=== PATIENT | female | born 1980 | race African-American/Black ===

== ENCOUNTER 2017-11-29 01:21 | Inpatient (IN) | payer OTHER ==
[~2017-11-29] VITALS: Ht 170.2 cm; Wt 75.7 kg
[2017-11-29] MEDS ORDERED: ZINC220C8 PO (03:21)
[2017-11-29] MEDS ORDERED: GABA300C PO (03:21)
[2017-11-29] MEDS ORDERED: [UNRECOGNIZED DRUG - CODE] PO (03:21)
[2017-11-29] MEDS ORDERED: LIDO30CR TP (03:21)
[2017-11-29] MEDS ORDERED: BACL10TA PO (03:21)
[2017-11-29] MEDS ORDERED: AMLO10TA4 PO (03:21)
[2017-11-29] MEDS ORDERED: METO100T14 PO (03:21)
[2017-11-29] MEDS ORDERED: MULT1CAP34 PO (03:21)
[2017-11-29] MEDS ORDERED: ACET-868 PO (03:21)
[2017-11-29] MEDS ORDERED: ONDA4TAB5 PO (03:21)
[2017-11-29] MEDS ORDERED: AMIN30LI27 PO (03:21)
[2017-11-29] MEDS ORDERED: DOCU100C36 PO (03:21)
[2017-11-29] MEDS ORDERED: THIA100T13 PO (03:21)
[2017-11-29] MEDS ORDERED: PANT40SU PO (03:21)
[2017-11-29] MEDS ORDERED: OXYC5CAP18 PO (03:21)
[2017-11-29] MEDS ORDERED: MEGE400O5 PO (03:21)
[2017-11-29] MEDS ORDERED: ASCO500T10 PO (03:21)
[2017-11-29] MEDS ORDERED: FOLI1TAB16 PO (03:21)
[2017-11-29 04:00] VITALS: BP 146/93
[2017-11-29] MEDS ORDERED: MORPHINE SULFATE INJ 4 MG/ML DISP.SYRIN ONE (04:43)
[2017-11-29] MEDS ORDERED: MORPHINE SULFATE INJ 2 MG/ML DISP.SYRIN IV PRN (05:00)
[2017-11-29 07:12] LABS: BASOPHILS % (AUTO) 0.2 % (0.0-2.0); EOSINOPHILS # (AUTO) 0.1 /CMM (0.0-0.7); EOSINOPHILS % (AUTO) 1.5 % (0.0-6.0); HEMATOCRIT 31 % (33-45); HEMOGLOBIN 10.4 g/dL (11.5-14.8); LYMPHOCYTES # (AUTO) 1.5 /CMM (0.8-4.8); MEAN CORPUSCULAR HEMOGLOBIN 30 PG (26.0-33.0); MEAN CORPUSCULAR HGB CONC 34 g/dl (31.0-36.0); MEAN CORPUSCULAR VOLUME 88 fL (82-100); MONOCYTES # (AUTO) 0.6 /CMM (0.1-1.30); MONOCYTES % (AUTO) 7.8 % (2.0-12.0); NEUTROPHILS # (AUTO) 5.6 /CMM (1.8-8.9); NEUTROPHILS % (AUTO) 71.5 % (43.0-81.0); PLATELET COUNT (AUTO) 264 /CMM (150-450); RDW COEFFICIENT OF VARIATION 14.4 (11.5-15.0); WHITE BLOOD COUNT (AUTO) 7.8 K/uL (4.3-11.0)
[2017-11-29 07:37] LABS: THYROID STIMULATING HORMONE 1.898 uIU/mL (0.358-3.74)
[2017-11-29 07:41] LABS: ALBUMIN 2.9 g/dL (3.4-5.0); BILIRUBIN,TOTAL 0.4 mg/dL (0.2-1.0); CALCIUM, SERUM 8.7 mg/dL (8.5-10.1); CREATININE 0.5 mg/dL (0.6-1.3); MAGNESIUM 1.7 mg/dL (1.8-2.4); PHOSPHORUS 3.9 mg/dL (2.5-4.9); POTASSIUM 3.5 mmol/L (3.5-5.1); TOTAL PROTEIN, SERUM 6.2 g/dL (6.4-8.2)
[2017-11-29 08:00] VITALS: BP 114/59
[2017-11-29] MEDS ORDERED: MAG HYDROX/AL HYDROX/SIMETH 30 ML UDC PO PRN (08:00)
[2017-11-29] MEDS ORDERED: Z GUARD REMEDY 2 OZ OINT TP PRN (08:00)
[2017-11-29] MEDS ORDERED: ONDANSETRON HCL/PF 4 MG/2 ML VIAL IVP PRN (08:00)
[2017-11-29] MEDS ORDERED: ACETAMINOPHEN 325 MG TABLET PO PRN ×2 (08:00→11:00)
[2017-11-29] MEDS ORDERED: ZOLPIDEM TARTRATE 5 MG TABLET PO PRN (08:00)
[2017-11-29] MEDS ORDERED: MAGNESIUM HYDROXIDE 30 ML UDC PO PRN (08:00)
[2017-11-29] MEDS: IV NS 0.9% 1,000 ML IV PRN (09:00)
[2017-11-29] MEDS ORDERED: MULT-447 PO (09:15)
[2017-11-29] MEDS: CEFTRIAXONE 1 G in IV D5W 50 ML IV SCH (10:35)
[2017-11-29] MEDS ORDERED: Medication Not On Formulary EA (Ondansetron Hcl (Zofran) 4 MG) PO PRN (11:00)
[2017-11-29] MEDS: ZINC SULFATE 220 MG CAPSULE PO SCH (11:28)
[2017-11-29] MEDS: PANTOPRAZOLE 40 MG/PACK PACK PO SCH (11:28)
[2017-11-29] MEDS: THIAMINE HCL 100 MG TABLET PO SCH (11:29)
[2017-11-29] MEDS: FOLIC ACID 1 MG TABLET PO SCH (11:29)
[2017-11-29] MEDS: AMLODIPINE BESYLATE 10 MG TABLET PO SCH (11:30)
[2017-11-29] MEDS: ASCORBIC ACID 500 MG TABLET PO SCH (11:30)
[2017-11-29] MEDS: BACLOFEN (10 MG) 10 MG TABLET PO SCH ×3 (11:30→16:39)
[2017-11-29] MEDS: PROSOURCE / PROSTAT (PYXIS) 30 ML UDC PO SCH ×3 (11:31→16:40)
[2017-11-29] MEDS: GABAPENTIN 300 MG CAPSULE PO SCH ×2 (11:31→16:39)
[2017-11-29] MEDS: Magnesium 1GM/D5W 100ML PREMIX 100 ML IV SCH ×2 (11:39→13:13)
[2017-11-29 12:00] VITALS: BP 118/73
[2017-11-29] MEDS: ERGOCALCIFEROL (VITAMIN D2) 8,000 UNIT/ML PO SCH (12:14)
[2017-11-29] MEDS: LIDOCAINE/PRILOCAINE (5GM) 5 GM TUBE TP SCH ×2 (12:14→16:40)
[2017-11-29 12:39] LABS: THYROID STIMULATING HORMONE 1.921 uIU/mL (0.358-3.74)
[2017-11-29 15:10] LABS: INR 1.02 (0.87-1.13)
[2017-11-29 15:17] LABS: APPEARANCE,URINE SL CLOUDY (CLEAR); BILIRUBIN,URINE NEGATIVE (NEGATIVE); BLOOD, URINE 2+ Ery/uL (NEGATIVE); COLOR,URINE YELLOW (YELLOW); KETONES,URINE 1+ (NEGATIVE); LEUKOCYTE ESTERASE ,URINE NEGATIVE (NEGATIVE); NITRITE, URINE NEGATIVE (NEGATIVE); PROTEIN,URINE TRACE mg/dl (NEGATIVE); UGLUCOSE NEGATIVE (NEGATIVE); UROBILINOGEN,URINE 0.2 EU/dL (0.2)
[2017-11-29] MEDS: ENOXAPARIN SODIUM 40 MG/0.4 ML DISP.SYRIN SQ SCH (15:29)
[2017-11-29 15:41] LABS: BACTERIA,URINE Rare /HPF (None Seen); RBC,URINE 21-50 /HPF (0-2); SQUAMOUS EPITHELIAL CELL,UR Few /HPF (None Seen)
[2017-11-29] MEDS: HYDROCODONE/APAP 5/325MG 1 EACH TABLET PO PRN ×2 (15:45→20:15)
[2017-11-29 16:00] VITALS: BP 129/90
[2017-11-29] MEDS: DOCUSATE SODIUM 100 MG CAPSULE PO SCH (16:39)
[2017-11-29 20:00] VITALS: BP 138/85
[2017-11-29] MEDS: BOOST PLUS FOOD-VANILLA 237 ML BOX PO SCH (20:20)
[2017-11-29] MEDS: ATORVASTATIN 10 MG TABLET PO SCH (21:31)
[2017-11-29] MEDS: METOPROLOL TARTRATE 50 MG TABLET PO SCH (21:32)
[2017-11-30] VITALS: BP 141/99
[2017-11-30] MEDS: IV NS 0.9% 1,000 ML IV PRN (02:20)
[2017-11-30 04:00] VITALS: BP 133/99
[2017-11-30 06:46] LABS: BASOPHILS % (AUTO) 0.1 % (0.0-2.0); EOSINOPHILS # (AUTO) 0.1 /CMM (0.0-0.7); EOSINOPHILS % (AUTO) 2.1 % (0.0-6.0); HEMATOCRIT 30 % (33-45); HEMOGLOBIN 10.1 g/dL (11.5-14.8); LYMPHOCYTES # (AUTO) 1.3 /CMM (0.8-4.8); LYMPHOCYTES % (AUTO) 19.7 % (20.0-44.0); MEAN CORPUSCULAR HEMOGLOBIN 29 PG (26.0-33.0); MEAN CORPUSCULAR HGB CONC 33 g/dl (31.0-36.0); MEAN CORPUSCULAR VOLUME 88 fL (82-100); MONOCYTES # (AUTO) 0.2 /CMM (0.1-1.30); NEUTROPHILS % (AUTO) 75.1 % (43.0-81.0); PLATELET COUNT (AUTO) 258 /CMM (150-450); RDW COEFFICIENT OF VARIATION 13.9 (11.5-15.0); RED BLOOD CELL COUNT(AUTO) 3.44 MIL/uL (4.0-5.2); WHITE BLOOD COUNT (AUTO) 6.7 K/uL (4.3-11.0)
[2017-11-30 07:00] LABS: ALBUMIN 2.7 g/dL (3.4-5.0); BILIRUBIN,TOTAL 0.4 mg/dL (0.2-1.0); CALCIUM, SERUM 8.4 mg/dL (8.5-10.1); CREATININE 0.4 mg/dL (0.6-1.3); PHOSPHORUS 3.4 mg/dL (2.5-4.9); POTASSIUM 3.5 mmol/L (3.5-5.1)
[2017-11-30] MEDS: PANTOPRAZOLE 40 MG/PACK PACK PO SCH ×2 (07:30→07:55)
[2017-11-30] MEDS: BOOST PLUS FOOD-VANILLA 237 ML BOX PO SCH ×2 (07:55→16:52)
[2017-11-30] MEDS: CEFTRIAXONE 1 G in IV D5W 50 ML IV SCH (07:55)
[2017-11-30 08:00] VITALS: BP 132/76
[2017-11-30] MEDS: GABAPENTIN 300 MG CAPSULE PO SCH ×4 (09:00→16:52)
[2017-11-30] MEDS: FOLIC ACID 1 MG TABLET PO SCH ×2 (09:00→09:01)
[2017-11-30] MEDS: ZINC SULFATE 220 MG CAPSULE PO SCH ×2 (09:00→09:01)
[2017-11-30] MEDS: BACLOFEN (10 MG) 10 MG TABLET PO SCH ×4 (09:00→16:52)
[2017-11-30] MEDS: AMLODIPINE BESYLATE 10 MG TABLET PO SCH ×2 (09:00→09:01)
[2017-11-30] MEDS: MEGESTROL ACETATE SUSP 400 MG/10 ML UDC PO SCH ×2 (09:00→09:01)
[2017-11-30] MEDS: ERGOCALCIFEROL (VITAMIN D2) 8,000 UNIT/ML PO SCH (09:00)
[2017-11-30] MEDS: METOPROLOL TARTRATE 50 MG TABLET PO SCH ×3 (09:00→21:10)
[2017-11-30] MEDS: PROSOURCE / PROSTAT (PYXIS) 30 ML UDC PO SCH ×4 (09:00→16:52)
[2017-11-30] MEDS: THIAMINE HCL 100 MG TABLET PO SCH ×2 (09:00→09:01)
[2017-11-30] MEDS: ASCORBIC ACID 500 MG TABLET PO SCH ×2 (09:00→09:01)
[2017-11-30] MEDS: MULTIVIT, IRON, MIN NO. 8, FA 1 TAB PO SCH ×2 (09:00→09:01)
[2017-11-30] MEDS: DOCUSATE SODIUM 100 MG CAPSULE PO SCH ×3 (09:00→16:52)
[2017-11-30] MEDS: LIDOCAINE/PRILOCAINE (5GM) 5 GM TUBE TP SCH ×2 (09:10→16:52)
[2017-11-30] MEDS: ENOXAPARIN SODIUM 40 MG/0.4 ML DISP.SYRIN SQ SCH (09:12)
[2017-11-30 16:00] VITALS: BP 136/80
[2017-11-30 20:00] VITALS: BP 156/96
[2017-11-30] MEDS: ATORVASTATIN 10 MG TABLET PO SCH (21:10)
[2017-11-30] MEDS: HYDROCODONE/APAP 5/325MG 1 EACH TABLET PO PRN (21:11)
[2017-12-01 04:00] VITALS: BP 138/95
[2017-12-01 06:49] LABS: BASOPHILS % (AUTO) 0.6 % (0.0-2.0); EOSINOPHILS # (AUTO) 0.2 /CMM (0.0-0.7); EOSINOPHILS % (AUTO) 4.4 % (0.0-6.0); HEMATOCRIT 29 % (33-45); HEMOGLOBIN 10.1 g/dL (11.5-14.8); LYMPHOCYTES # (AUTO) 1.1 /CMM (0.8-4.8); LYMPHOCYTES % (AUTO) 22.6 % (20.0-44.0); MEAN CORPUSCULAR HEMOGLOBIN 30 PG (26.0-33.0); MEAN CORPUSCULAR HGB CONC 35 g/dl (31.0-36.0); MEAN CORPUSCULAR VOLUME 86 fL (82-100); MONOCYTES # (AUTO) 0.4 /CMM (0.1-1.30); MONOCYTES % (AUTO) 7.9 % (2.0-12.0); NEUTROPHILS % (AUTO) 64.5 % (43.0-81.0); PLATELET COUNT (AUTO) 255 /CMM (150-450); RED BLOOD CELL COUNT(AUTO) 3.37 MIL/uL (4.0-5.2); WHITE BLOOD COUNT (AUTO) 4.7 K/uL (4.3-11.0)
[2017-12-01 06:59] LABS: CALCIUM, SERUM 8.7 mg/dL (8.5-10.1); CREATININE 0.5 mg/dL (0.6-1.3); MAGNESIUM 1.9 mg/dL (1.8-2.4); PHOSPHORUS 4.2 mg/dL (2.5-4.9); POTASSIUM 2.9 mmol/L (3.5-5.1)
[2017-12-01 08:00] VITALS: BP 127/84
[2017-12-01] MEDS: PANTOPRAZOLE 40 MG/PACK PACK PO SCH (09:01)
[2017-12-01] MEDS: MEGESTROL ACETATE SUSP 400 MG/10 ML UDC PO SCH (09:01)
[2017-12-01] MEDS: DOCUSATE SODIUM 100 MG CAPSULE PO SCH ×2 (09:02→16:43)
[2017-12-01] MEDS: THIAMINE HCL 100 MG TABLET PO SCH (09:02)
[2017-12-01] MEDS: MULTIVIT, IRON, MIN NO. 8, FA 1 TAB PO SCH (09:02)
[2017-12-01] MEDS: GABAPENTIN 300 MG CAPSULE PO SCH ×3 (09:02→16:43)
[2017-12-01] MEDS: ERGOCALCIFEROL (VITAMIN D2) 8,000 UNIT/ML PO SCH (09:02)
[2017-12-01] MEDS: ASCORBIC ACID 500 MG TABLET PO SCH (09:02)
[2017-12-01] MEDS: BACLOFEN (10 MG) 10 MG TABLET PO SCH ×3 (09:02→16:43)
[2017-12-01] MEDS: CEFTRIAXONE 1 G in IV D5W 50 ML IV SCH (09:02)
[2017-12-01] MEDS: ZINC SULFATE 220 MG CAPSULE PO SCH (09:02)
[2017-12-01] MEDS: AMLODIPINE BESYLATE 10 MG TABLET PO SCH (09:03)
[2017-12-01] MEDS: FOLIC ACID 1 MG TABLET PO SCH (09:03)
[2017-12-01] MEDS: PROSOURCE / PROSTAT (PYXIS) 30 ML UDC PO SCH ×3 (09:05→16:42)
[2017-12-01] MEDS: ENOXAPARIN SODIUM 40 MG/0.4 ML DISP.SYRIN SQ SCH (09:08)
[2017-12-01] MEDS: METOPROLOL TARTRATE 50 MG TABLET PO SCH ×2 (09:10→21:53)
[2017-12-01] MEDS: BOOST PLUS FOOD-VANILLA 237 ML BOX PO SCH ×2 (09:42→16:42)
[2017-12-01 10:00] VITALS: BP 127/84
[2017-12-01] MEDS: POTASSIUM CL. PREMIX PERIPHER. 50 ML IV SCH ×6 (12:23→17:38)
[2017-12-01 16:00] VITALS: BP 120/93
[2017-12-01] MEDS: HYDROCODONE/APAP 5/325MG 1 EACH TABLET PO PRN (17:41)
[2017-12-01] MEDS: ATORVASTATIN 10 MG TABLET PO SCH (21:47)
[2017-12-01 22:00] VITALS: BP 146/80
[2017-12-02 06:00] VITALS: BP_SYST 136; BP_SYST 146; BP_DIAS 80; BP_DIAS 86
[2017-12-02 08:00] VITALS: BP 140/84
[2017-12-02 08:02] LABS: BASOPHILS % (AUTO) 0.4 % (0.0-2.0); EOSINOPHILS # (AUTO) 0.2 /CMM (0.0-0.7); EOSINOPHILS % (AUTO) 3.7 % (0.0-6.0); HEMATOCRIT 35 % (33-45); HEMOGLOBIN 11.6 g/dL (11.5-14.8); LYMPHOCYTES # (AUTO) 1.5 /CMM (0.8-4.8); LYMPHOCYTES % (AUTO) 22.6 % (20.0-44.0); MEAN CORPUSCULAR HEMOGLOBIN 29 PG (26.0-33.0); MEAN CORPUSCULAR HGB CONC 33 g/dl (31.0-36.0); MEAN CORPUSCULAR VOLUME 86 fL (82-100); MONOCYTES # (AUTO) 0.5 /CMM (0.1-1.30); MONOCYTES % (AUTO) 6.9 % (2.0-12.0); NEUTROPHILS # (AUTO) 4.4 /CMM (1.8-8.9); NEUTROPHILS % (AUTO) 66.4 % (43.0-81.0); PLATELET COUNT (AUTO) 309 /CMM (150-450); RDW COEFFICIENT OF VARIATION 14.4 (11.5-15.0); RED BLOOD CELL COUNT(AUTO) 4.02 MIL/uL (4.0-5.2); WHITE BLOOD COUNT (AUTO) 6.6 K/uL (4.3-11.0)
[2017-12-02] MEDS: BOOST PLUS FOOD-VANILLA 237 ML BOX PO SCH ×2 (08:14→16:30)
[2017-12-02] MEDS: PANTOPRAZOLE 40 MG/PACK PACK PO SCH (08:14)
[2017-12-02] MEDS: SERTRALINE HCL 25 MG TABLET PO SCH (08:14)
[2017-12-02] MEDS: MULTIVIT, IRON, MIN NO. 8, FA 1 TAB PO SCH (08:14)
[2017-12-02] MEDS: BACLOFEN (10 MG) 10 MG TABLET PO SCH ×3 (08:14→16:29)
[2017-12-02] MEDS: MEGESTROL ACETATE SUSP 400 MG/10 ML UDC PO SCH (08:14)
[2017-12-02] MEDS: THIAMINE HCL 100 MG TABLET PO SCH (08:14)
[2017-12-02] MEDS: DOCUSATE SODIUM 100 MG CAPSULE PO SCH ×2 (08:14→16:36)
[2017-12-02] MEDS: ZINC SULFATE 220 MG CAPSULE PO SCH (08:14)
[2017-12-02] MEDS: GABAPENTIN 300 MG CAPSULE PO SCH ×3 (08:14→16:29)
[2017-12-02] MEDS: ASCORBIC ACID 500 MG TABLET PO SCH (08:14)
[2017-12-02] MEDS: FOLIC ACID 1 MG TABLET PO SCH (08:15)
[2017-12-02] MEDS: AMLODIPINE BESYLATE 10 MG TABLET PO SCH (08:15)
[2017-12-02] MEDS: METOPROLOL TARTRATE 50 MG TABLET PO SCH ×2 (08:15→21:13)
[2017-12-02] MEDS: PROSOURCE / PROSTAT (PYXIS) 30 ML UDC PO SCH ×3 (08:15→16:30)
[2017-12-02 08:27] LABS: CREATININE 0.5 mg/dL (0.6-1.3); MAGNESIUM 1.9 mg/dL (1.8-2.4); PHOSPHORUS 4.1 mg/dL (2.5-4.9); POTASSIUM 3.6 mmol/L (3.5-5.1)
[2017-12-02] MEDS: ENOXAPARIN SODIUM 40 MG/0.4 ML DISP.SYRIN SQ SCH (08:32)
[2017-12-02] MEDS: ERGOCALCIFEROL (VITAMIN D2) 8,000 UNIT/ML PO SCH (08:34)
[2017-12-02 10:00] VITALS: BP 140/84
[2017-12-02] MEDS: LEVOFLOXACIN 500 MG /D5W 100ML 500 MG in PREMIX 1 EA IV SCH (12:42)
[2017-12-02] MEDS: CARISOPRODOL 350 MG TABLET PO SCH ×2 (12:42→16:29)
[2017-12-02 16:00] VITALS: BP 123/80
[2017-12-02 20:00] VITALS: BP 136/88
[2017-12-02] MEDS: HYDROCODONE/APAP 5/325MG 1 EACH TABLET PO PRN (20:32)
[2017-12-02] MEDS: ATORVASTATIN 10 MG TABLET PO SCH (21:13)
[2017-12-02 22:55] VITALS: BP 136/88
[2017-12-03 06:51] LABS: BASOPHILS % (AUTO) 0.3 % (0.0-2.0); EOSINOPHILS # (AUTO) 0.2 /CMM (0.0-0.7); HEMATOCRIT 32 % (33-45); HEMOGLOBIN 10.6 g/dL (11.5-14.8); LYMPHOCYTES # (AUTO) 1.2 /CMM (0.8-4.8); MEAN CORPUSCULAR HEMOGLOBIN 29 PG (26.0-33.0); MEAN CORPUSCULAR HGB CONC 34 g/dl (31.0-36.0); MEAN CORPUSCULAR VOLUME 87 fL (82-100); MONOCYTES # (AUTO) 0.6 /CMM (0.1-1.30); MONOCYTES % (AUTO) 6.3 % (2.0-12.0); NEUTROPHILS # (AUTO) 7.7 /CMM (1.8-8.9); NEUTROPHILS % (AUTO) 79.4 % (43.0-81.0); PLATELET COUNT (AUTO) 295 /CMM (150-450); RDW COEFFICIENT OF VARIATION 14.1 (11.5-15.0); RED BLOOD CELL COUNT(AUTO) 3.65 MIL/uL (4.0-5.2); WHITE BLOOD COUNT (AUTO) 9.7 K/uL (4.3-11.0)
[2017-12-03 07:13] LABS: CALCIUM, SERUM 8.9 mg/dL (8.5-10.1); CREATININE 0.6 mg/dL (0.6-1.3); PHOSPHORUS 4.1 mg/dL (2.5-4.9); POTASSIUM 3.2 mmol/L (3.5-5.1)
[2017-12-03 08:00] VITALS: BP 140/89
[2017-12-03] MEDS: DOCUSATE SODIUM 100 MG CAPSULE PO SCH ×2 (09:41→16:51)
[2017-12-03] MEDS: ERGOCALCIFEROL (VITAMIN D2) 8,000 UNIT/ML PO SCH (09:41)
[2017-12-03] MEDS: THIAMINE HCL 100 MG TABLET PO SCH (09:41)
[2017-12-03] MEDS: CARISOPRODOL 350 MG TABLET PO SCH ×3 (09:42→16:51)
[2017-12-03] MEDS: MULTIVIT, IRON, MIN NO. 8, FA 1 TAB PO SCH (09:42)
[2017-12-03] MEDS: BACLOFEN (10 MG) 10 MG TABLET PO SCH ×3 (09:42→16:51)
[2017-12-03] MEDS: ZINC SULFATE 220 MG CAPSULE PO SCH (09:42)
[2017-12-03] MEDS: MEGESTROL ACETATE SUSP 400 MG/10 ML UDC PO SCH (09:42)
[2017-12-03] MEDS: ASCORBIC ACID 500 MG TABLET PO SCH (09:43)
[2017-12-03] MEDS: GABAPENTIN 300 MG CAPSULE PO SCH ×3 (09:43→16:51)
[2017-12-03] MEDS: PANTOPRAZOLE 40 MG/PACK PACK PO SCH (09:43)
[2017-12-03] MEDS: FOLIC ACID 1 MG TABLET PO SCH (09:43)
[2017-12-03] MEDS: AMLODIPINE BESYLATE 10 MG TABLET PO SCH (09:43)
[2017-12-03] MEDS: SERTRALINE HCL 25 MG TABLET PO SCH (09:43)
[2017-12-03] MEDS: METOPROLOL TARTRATE 50 MG TABLET PO SCH ×2 (09:49→21:59)
[2017-12-03] MEDS: ENOXAPARIN SODIUM 40 MG/0.4 ML DISP.SYRIN SQ SCH (09:50)
[2017-12-03] MEDS: BOOST PLUS FOOD-VANILLA 237 ML BOX PO SCH ×2 (09:51→12:26)
[2017-12-03] MEDS: PROSOURCE / PROSTAT (PYXIS) 30 ML UDC PO SCH ×3 (09:52→16:51)
[2017-12-03] MEDS: LEVOFLOXACIN 500 MG /D5W 100ML 500 MG in PREMIX 1 EA IV SCH (12:22)
[2017-12-03] MEDS ORDERED: BARIUM SULFATE 148 GM SUSP.RECON PO ONE (12:34)
[2017-12-03] MEDS: POTASSIUM CHLORIDE 20 MEQ TAB.PRT.SR PO SCH ×2 (12:54→14:20)
[2017-12-03] MEDS: CEFTRIAXONE 1 G in IV D5W 50 ML IV SCH (15:55)
[2017-12-03 16:00] VITALS: BP 124/87
[2017-12-03 17:00] VITALS: BP 124/87
[2017-12-03 20:40] VITALS: BP 112/69
[2017-12-03] MEDS: ATORVASTATIN 10 MG TABLET PO SCH (21:59)
[2017-12-03] MEDS: HYDROCODONE/APAP 5/325MG 1 EACH TABLET PO PRN (22:02)
[2017-12-04 06:37] LABS: BASOPHILS % (AUTO) 0.5 % (0.0-2.0); EOSINOPHILS # (AUTO) 0.3 /CMM (0.0-0.7); EOSINOPHILS % (AUTO) 4.2 % (0.0-6.0); HEMATOCRIT 31 % (33-45); HEMOGLOBIN 10.6 g/dL (11.5-14.8); LYMPHOCYTES # (AUTO) 1.6 /CMM (0.8-4.8); MEAN CORPUSCULAR HEMOGLOBIN 29 PG (26.0-33.0); MEAN CORPUSCULAR HGB CONC 34 g/dl (31.0-36.0); MEAN CORPUSCULAR VOLUME 86 fL (82-100); MONOCYTES # (AUTO) 0.5 /CMM (0.1-1.30); NEUTROPHILS # (AUTO) 3.9 /CMM (1.8-8.9); NEUTROPHILS % (AUTO) 61.3 % (43.0-81.0); PLATELET COUNT (AUTO) 304 /CMM (150-450); RDW COEFFICIENT OF VARIATION 14.3 (11.5-15.0); RED BLOOD CELL COUNT(AUTO) 3.62 MIL/uL (4.0-5.2); WHITE BLOOD COUNT (AUTO) 6.3 K/uL (4.3-11.0)
[2017-12-04 06:50] LABS: CALCIUM, SERUM 8.9 mg/dL (8.5-10.1); CREATININE 0.6 mg/dL (0.6-1.3); MAGNESIUM 1.8 mg/dL (1.8-2.4); PHOSPHORUS 4.1 mg/dL (2.5-4.9); POTASSIUM 3.5 mmol/L (3.5-5.1)
[2017-12-04 08:00] VITALS: BP 136/88
[2017-12-04] MEDS: PANTOPRAZOLE 40 MG/PACK PACK PO SCH (08:25)
[2017-12-04] MEDS: DOCUSATE SODIUM 100 MG CAPSULE PO SCH ×2 (08:28→18:00)
[2017-12-04] MEDS: BACLOFEN (10 MG) 10 MG TABLET PO SCH ×3 (08:29→18:01)
[2017-12-04] MEDS: FOLIC ACID 1 MG TABLET PO SCH (08:29)
[2017-12-04] MEDS: GABAPENTIN 300 MG CAPSULE PO SCH ×3 (08:30→18:01)
[2017-12-04] MEDS: METOPROLOL TARTRATE 50 MG TABLET PO SCH ×2 (08:30→21:04)
[2017-12-04] MEDS: ASCORBIC ACID 500 MG TABLET PO SCH (08:30)
[2017-12-04] MEDS: ZINC SULFATE 220 MG CAPSULE PO SCH (08:30)
[2017-12-04] MEDS: MEGESTROL ACETATE SUSP 400 MG/10 ML UDC PO SCH (08:30)
[2017-12-04] MEDS: SERTRALINE HCL 25 MG TABLET PO SCH (08:30)
[2017-12-04] MEDS: THIAMINE HCL 100 MG TABLET PO SCH (08:30)
[2017-12-04] MEDS: MULTIVIT, IRON, MIN NO. 8, FA 1 TAB PO SCH (08:30)
[2017-12-04] MEDS: AMLODIPINE BESYLATE 10 MG TABLET PO SCH (08:31)
[2017-12-04] MEDS: CARISOPRODOL 350 MG TABLET PO SCH ×3 (08:31→18:01)
[2017-12-04] MEDS: PROSOURCE / PROSTAT (PYXIS) 30 ML UDC PO SCH ×3 (08:31→18:01)
[2017-12-04] MEDS: ENOXAPARIN SODIUM 40 MG/0.4 ML DISP.SYRIN SQ SCH (09:00)
[2017-12-04] MEDS: BOOST PLUS FOOD-VANILLA 237 ML BOX PO SCH ×2 (09:04→18:00)
[2017-12-04] MEDS ORDERED: LEVOFLOXACIN (500MG) 500 MG TABLET PO SCH (12:00)
[2017-12-04] MEDS: ERGOCALCIFEROL (VITAMIN D2) 8,000 UNIT/ML PO SCH (13:31)
[2017-12-04] MEDS: CEFTRIAXONE 1 G in IV D5W 50 ML IV SCH (15:23)
[2017-12-04 16:00] VITALS: BP 116/75
[2017-12-04] MEDS: PIPERACILLIN /TAZOBACTAM 3.375 G in IV D5W 50 ML IV SCH ×2 (18:02→23:53)
[2017-12-04 20:00] VITALS: BP 130/71
[2017-12-04] MEDS: ATORVASTATIN 10 MG TABLET PO SCH (21:04)
[2017-12-04] MEDS: HYDROCODONE/APAP 5/325MG 1 EACH TABLET PO PRN (21:26)
[2017-12-05] MEDS: PIPERACILLIN /TAZOBACTAM 3.375 G in IV D5W 50 ML IV SCH ×3 (06:06→17:22)
[2017-12-05] MEDS: HYDROCODONE/APAP 5/325MG 1 EACH TABLET PO PRN ×2 (06:08→20:29)
[2017-12-05 08:00] VITALS: BP_SYST 144; BP_SYST 153; BP_DIAS 91; BP_DIAS 94
[2017-12-05] MEDS: MEGESTROL ACETATE SUSP 400 MG/10 ML UDC PO SCH (08:29)
[2017-12-05] MEDS: DOCUSATE SODIUM 100 MG CAPSULE PO SCH ×2 (08:29→17:23)
[2017-12-05] MEDS: FOLIC ACID 1 MG TABLET PO SCH (08:29)
[2017-12-05] MEDS: PANTOPRAZOLE 40 MG/PACK PACK PO SCH (08:29)
[2017-12-05] MEDS: PROSOURCE / PROSTAT (PYXIS) 30 ML UDC PO SCH ×3 (08:29→17:22)
[2017-12-05] MEDS: ERGOCALCIFEROL (VITAMIN D2) 8,000 UNIT/ML PO SCH (08:29)
[2017-12-05] MEDS: MULTIVIT, IRON, MIN NO. 8, FA 1 TAB PO SCH (08:29)
[2017-12-05] MEDS: METOPROLOL TARTRATE 50 MG TABLET PO SCH ×2 (08:29→20:35)
[2017-12-05] MEDS: ZINC SULFATE 220 MG CAPSULE PO SCH (08:30)
[2017-12-05] MEDS: CARISOPRODOL 350 MG TABLET PO SCH ×3 (08:30→17:23)
[2017-12-05] MEDS: AMLODIPINE BESYLATE 10 MG TABLET PO SCH (08:30)
[2017-12-05] MEDS: BACLOFEN (10 MG) 10 MG TABLET PO SCH ×3 (08:30→17:23)
[2017-12-05] MEDS: THIAMINE HCL 100 MG TABLET PO SCH (08:30)
[2017-12-05] MEDS: SERTRALINE HCL 25 MG TABLET PO SCH (08:30)
[2017-12-05] MEDS: ASCORBIC ACID 500 MG TABLET PO SCH (08:30)
[2017-12-05] MEDS: BOOST PLUS FOOD-VANILLA 237 ML BOX PO SCH ×2 (08:31→17:22)
[2017-12-05] MEDS: ENOXAPARIN SODIUM 40 MG/0.4 ML DISP.SYRIN SQ SCH (08:31)
[2017-12-05] MEDS: GABAPENTIN 300 MG CAPSULE PO SCH ×3 (08:33→17:22)
[2017-12-05 11:48] LABS: BASOPHILS % (AUTO) 0.2 % (0.0-2.0); EOSINOPHILS % (AUTO) 0.3 % (0.0-6.0); HEMATOCRIT 34 % (33-45); HEMOGLOBIN 11.3 g/dL (11.5-14.8); LYMPHOCYTES # (AUTO) 1.2 /CMM (0.8-4.8); LYMPHOCYTES % (AUTO) 9.8 % (20.0-44.0); MEAN CORPUSCULAR HEMOGLOBIN 29 PG (26.0-33.0); MEAN CORPUSCULAR HGB CONC 33 g/dl (31.0-36.0); MEAN CORPUSCULAR VOLUME 87 fL (82-100); MONOCYTES # (AUTO) 0.8 /CMM (0.1-1.30); MONOCYTES % (AUTO) 6.8 % (2.0-12.0); NEUTROPHILS # (AUTO) 9.8 /CMM (1.8-8.9); NEUTROPHILS % (AUTO) 82.9 % (43.0-81.0); PLATELET COUNT (AUTO) 352 /CMM (150-450); RDW COEFFICIENT OF VARIATION 14.6 (11.5-15.0); RED BLOOD CELL COUNT(AUTO) 3.91 MIL/uL (4.0-5.2); WHITE BLOOD COUNT (AUTO) 11.9 K/uL (4.3-11.0)
[2017-12-05 12:02] LABS: CALCIUM, SERUM 9.1 mg/dL (8.5-10.1); CREATININE 0.7 mg/dL (0.6-1.3); MAGNESIUM 1.8 mg/dL (1.8-2.4)
[2017-12-05] MEDS: METHOCARBAMOL (750MG) 750 MG TABLET PO SCH ×2 (13:28→20:35)
[2017-12-05 16:00] VITALS: BP 117/82
[2017-12-05 20:00] VITALS: BP 127/77
[2017-12-05] MEDS: ATORVASTATIN 10 MG TABLET PO SCH (22:07)
[2017-12-06] MEDS: PIPERACILLIN /TAZOBACTAM 3.375 G in IV D5W 50 ML IV SCH ×4 (00:35→17:37)
[2017-12-06 06:25] LABS: BASOPHILS % (AUTO) 0.3 % (0.0-2.0); EOSINOPHILS # (AUTO) 0.1 /CMM (0.0-0.7); EOSINOPHILS % (AUTO) 1.9 % (0.0-6.0); HEMATOCRIT 33 % (33-45); HEMOGLOBIN 10.9 g/dL (11.5-14.8); LYMPHOCYTES # (AUTO) 1.1 /CMM (0.8-4.8); LYMPHOCYTES % (AUTO) 13.7 % (20.0-44.0); MEAN CORPUSCULAR HEMOGLOBIN 29 PG (26.0-33.0); MEAN CORPUSCULAR HGB CONC 34 g/dl (31.0-36.0); MEAN CORPUSCULAR VOLUME 86 fL (82-100); MONOCYTES # (AUTO) 0.5 /CMM (0.1-1.30); MONOCYTES % (AUTO) 6.8 % (2.0-12.0); NEUTROPHILS # (AUTO) 5.9 /CMM (1.8-8.9); NEUTROPHILS % (AUTO) 77.3 % (43.0-81.0); PLATELET COUNT (AUTO) 360 /CMM (150-450); RDW COEFFICIENT OF VARIATION 14.7 (11.5-15.0); RED BLOOD CELL COUNT(AUTO) 3.79 MIL/uL (4.0-5.2); WHITE BLOOD COUNT (AUTO) 7.7 K/uL (4.3-11.0)
[2017-12-06 07:29] LABS: CREATININE 0.6 mg/dL (0.6-1.3); PHOSPHORUS 3.5 mg/dL (2.5-4.9); POTASSIUM 3.8 mmol/L (3.5-5.1)
[2017-12-06] MEDS: PANTOPRAZOLE 40 MG/PACK PACK PO SCH (07:41)
[2017-12-06] MEDS: BOOST PLUS FOOD-VANILLA 237 ML BOX PO SCH ×2 (07:41→17:34)
[2017-12-06 08:00] VITALS: BP 127/77
[2017-12-06] MEDS: MEGESTROL ACETATE SUSP 400 MG/10 ML UDC PO SCH (08:31)
[2017-12-06] MEDS: DOCUSATE SODIUM 100 MG CAPSULE PO SCH ×2 (08:31→17:33)
[2017-12-06] MEDS: ASCORBIC ACID 500 MG TABLET PO SCH (08:32)
[2017-12-06] MEDS: ERGOCALCIFEROL (VITAMIN D2) 8,000 UNIT/ML PO SCH (08:32)
[2017-12-06] MEDS: FOLIC ACID 1 MG TABLET PO SCH (08:32)
[2017-12-06] MEDS: MULTIVIT, IRON, MIN NO. 8, FA 1 TAB PO SCH (08:32)
[2017-12-06] MEDS: BACLOFEN (10 MG) 10 MG TABLET PO SCH ×3 (08:32→17:34)
[2017-12-06] MEDS: SERTRALINE HCL 25 MG TABLET PO SCH (08:32)
[2017-12-06] MEDS: ZINC SULFATE 220 MG CAPSULE PO SCH (08:32)
[2017-12-06] MEDS: THIAMINE HCL 100 MG TABLET PO SCH (08:32)
[2017-12-06] MEDS: CARISOPRODOL 350 MG TABLET PO SCH ×3 (08:32→17:34)
[2017-12-06] MEDS: METOPROLOL TARTRATE 50 MG TABLET PO SCH ×2 (08:33→21:52)
[2017-12-06] MEDS: METHOCARBAMOL (750MG) 750 MG TABLET PO SCH ×3 (08:33→21:51)
[2017-12-06] MEDS: AMLODIPINE BESYLATE 10 MG TABLET PO SCH (08:34)
[2017-12-06] MEDS: PROSOURCE / PROSTAT (PYXIS) 30 ML UDC PO SCH ×3 (08:36→17:34)
[2017-12-06] MEDS: GABAPENTIN 300 MG CAPSULE PO SCH ×3 (08:36→17:33)
[2017-12-06] MEDS: ENOXAPARIN SODIUM 40 MG/0.4 ML DISP.SYRIN SQ SCH (08:37)
[2017-12-06 16:00] VITALS: BP_SYST 127; BP_SYST 136; BP_DIAS 77; BP_DIAS 88
[2017-12-06 20:00] VITALS: BP 136/96
[2017-12-06] MEDS: ATORVASTATIN 10 MG TABLET PO SCH (21:51)
[2017-12-07] MEDS: PIPERACILLIN /TAZOBACTAM 3.375 G in IV D5W 50 ML IV SCH ×3 (00:46→11:19)
[2017-12-07] MEDS: BACLOFEN (10 MG) 10 MG TABLET PO SCH ×3 (08:27→16:18)
[2017-12-07] MEDS: MEGESTROL ACETATE SUSP 400 MG/10 ML UDC PO SCH (08:28)
[2017-12-07] MEDS: FOLIC ACID 1 MG TABLET PO SCH (08:28)
[2017-12-07] MEDS: ASCORBIC ACID 500 MG TABLET PO SCH (08:28)
[2017-12-07] MEDS: ZINC SULFATE 220 MG CAPSULE PO SCH (08:28)
[2017-12-07] MEDS: MULTIVIT, IRON, MIN NO. 8, FA 1 TAB PO SCH (08:28)
[2017-12-07] MEDS: AMLODIPINE BESYLATE 10 MG TABLET PO SCH (08:29)
[2017-12-07] MEDS: THIAMINE HCL 100 MG TABLET PO SCH (08:29)
[2017-12-07] MEDS: SERTRALINE HCL 25 MG TABLET PO SCH (08:29)
[2017-12-07] MEDS: GABAPENTIN 300 MG CAPSULE PO SCH ×3 (08:29→16:18)
[2017-12-07] MEDS: CARISOPRODOL 350 MG TABLET PO SCH ×3 (08:29→16:18)
[2017-12-07] MEDS: METHOCARBAMOL (750MG) 750 MG TABLET PO SCH ×2 (08:30→12:16)
[2017-12-07] MEDS: BOOST PLUS FOOD-VANILLA 237 ML BOX PO SCH ×2 (08:30→16:18)
[2017-12-07] MEDS: PANTOPRAZOLE 40 MG/PACK PACK PO SCH (08:32)
[2017-12-07] MEDS: DOCUSATE SODIUM 100 MG CAPSULE PO SCH ×3 (08:33→16:20)
[2017-12-07] MEDS: METOPROLOL TARTRATE 50 MG TABLET PO SCH (08:33)
[2017-12-07] MEDS: PROSOURCE / PROSTAT (PYXIS) 30 ML UDC PO SCH ×3 (08:36→16:18)
[2017-12-07] MEDS: ERGOCALCIFEROL (VITAMIN D2) 8,000 UNIT/ML PO SCH ×2 (09:00→11:31)
[2017-12-07] MEDS ORDERED: ENOXAPARIN SODIUM 40 MG/0.4 ML DISP.SYRIN SQ SCH (09:00)
[2017-12-07 16:00] VITALS: BP 111/68
[2017-12-07] MEDS ORDERED: SERTRALINE HCL 25 MG TABLET PO SCH (17:00)
== END 2017-12-07 18:45 | disposition home health service (06) | DRG 720 ==
LOC: TELE1 01:46 → EDBD 01:46 → TELE1 02:32 → MEDSG1 11-30 09:35 → MEDSG2 12-03 20:35
DX: A41.9 Sepsis, unspecified organism (principal); J69.0 Pneumonitis due to inhalation of food and vomit; G93.41 Metabolic encephalopathy; E44.0 Moderate protein-calorie malnutrition; R53.2 Functional quadriplegia; R13.10 Dysphagia, unspecified; Z86.74 Personal history of sudden cardiac arrest; D68.59 Other primary thrombophilia; F33.2 Major depressive disorder, recurrent severe without psychotic features; E86.0 Dehydration; D64.9 Anemia, unspecified; E83.42 Hypomagnesemia; Z86.73 Personal history of transient ischemic attack (TIA), and cerebral infarction without residual deficits; Z98.84 Bariatric surgery status; I10 Essential (primary) hypertension; E88.09 Other disorders of plasma-protein metabolism, not elsewhere classified; Z68.26 Body mass index [BMI] 26.0-26.9, adult; L98.8 Other specified disorders of the skin and subcutaneous tissue; L90.5 Scar conditions and fibrosis of skin; E51.2 Wernicke's encephalopathy; E66.9 Obesity, unspecified; N39.0 Urinary tract infection, site not specified
CPT/HCPCS: 36415; 71045-TC; 74230-TC; 80048-TC; 80053-TC; 80061-TC; 81000-TC; 82306; 82728-TC; 83540-TC; 83735-TC; 84100-TC; 84439-TC; 84443-TC; 85025-TC; 85610-TC; 85652-TC; 87040-TC; 87081-TC; 87086-TC; 92521; 92526; 93307-TC; 94799-TC; 95819-TC; A4216; J0696; J1650; J1956; J2270; J2543; J3475; J3480; J7030; J7050; J7060; Z7610